=== PATIENT | female | born 1955 | race Caucasian/White ===

== ENCOUNTER 2020-06-22 21:14 | Outpatient (REF) | payer OTHER, SELFPAY ==
[2020-06-22 21:50] LABS: Hemoglobin A1C 5.2 % (<5.7)
[2020-06-22 21:55] LABS: ALT 30 U/L (14-59); AST 23 U/L (15-37); Albumin 3.9 g/dL (3.4-5.0); Alkaline Phosphatase 56 U/L (46-116); Anion Gap 11.5 mmol/L (3-11); BUN 11 mg/dL (7-18); Bilirubin, Total 0.8 mg/dL (0.2-1.0); CO2 27.5 mmol/L (21.0-32.0); CREATININE 0.6 mg/dL (0.55-1.02); Calcium 9.5 mg/dL (8.5-10.1); Calculated LDL 146 mg/dL (<100); Chloride 103 mmol/L (98-107); Cholesterol 246 mg/dL (<200); Glucose 84 mg/dL (74-106); HDL Cholesterol 91 mg/dL (40-60); Potassium 3.9 mmol/L (3.5-5.1); Sodium 142 mmol/L (136-145); TSH (W/Ref FT4) 3.24 uIU/mL (0.36-3.74); Total Protein 7.5 g/dL (6.4-8.2); Triglyceride 49 mg/dL (<150)
[2020-06-26 09:42] LABS: Hepatitis C Ab w Rflx HCV PCR Negative (Negative)
== END 2020-06-22 21:15 | disposition home or self-care (01) ==
LOC: NCHCN 21:14
PROVIDERS: Visit Provider Nurse Practitioner Family
DX: E78.89 Other lipoprotein metabolism disorders (principal); E03.9 Hypothyroidism, unspecified; M81.0 Age-related osteoporosis without current pathological fracture; Z13.1 Encounter for screening for diabetes mellitus
CPT/HCPCS: 80053; 80061; 82306; 86803; 83036; 84443

== ENCOUNTER 2020-07-04 15:59 | Outpatient (REF) | payer OTHER, SELFPAY ==
--- NOTE | 2020-07-04 15:19 | PAPFT_PTH ---
PATIENT: Brook Burch LOC: [facility]#:[id number] AGE/SX: 64/F ROOM: RE07/04/[address]: Lesley Redman : 1955 BED: DIS: 07/04/2020 SPEC #: [id number] RECD: 07/05/20 12:59 STATUS: MARK GARCIA #: [id number] BENTON: 07/04/20 15:[address]: Lesley Redman DEPT: [facility] Cytology RECD BY: Radha Smalls Tissues: 1 - CX/ENDOCX FOR PAP SMEARS Procedures: PAP THIN PREP/[facility] Screening HPV DNA PROBE Comments: [id number]
== END 2020-07-04 16:00 | disposition home or self-care (01) ==
LOC: NCHCN 15:59
PROVIDERS: Visit Provider Nurse Practitioner Family
DX: Z12.4 Encounter for screening for malignant neoplasm of cervix (principal); Z11.51 Encounter for screening for human papillomavirus (HPV)
CPT/HCPCS: 88142; 87624

== ENCOUNTER 2021-07-26 20:04 | Outpatient (REF) | payer MEDICARE, SELFPAY ==
[2021-07-26 17:04] LABS: ALT 33 U/L (14-59); AST 27 U/L (15-37); Albumin 3.8 g/dL (3.4-5.0); Alkaline Phosphatase 51 U/L (46-116); Anion Gap 6.5 mmol/L (3-11); BUN 13 mg/dL (7-18); Bilirubin, Total 0.7 mg/dL (0.2-1.0); CO2 29.5 mmol/L (21.0-32.0); CREATININE 0.7 mg/dL (0.55-1.02); Calcium 8.8 mg/dL (8.5-10.1); Calculated LDL 132 mg/dL (<100); Chloride 105 mmol/L (98-107); Cholesterol 215 mg/dL (<200); Glucose 93 mg/dL (74-106); HDL Cholesterol 74 mg/dL (40-60); Sodium 141 mmol/L (136-145); TSH 2.45 uIU/mL (0.36-3.74); Triglyceride 46 mg/dL (<150)
== END 2021-07-26 20:05 | disposition home or self-care (01) ==
LOC: NCHCN 20:04
PROVIDERS: Visit Provider Nurse Practitioner Family
DX: E03.9 Hypothyroidism, unspecified (principal); Z13.220 Encounter for screening for lipoid disorders
CPT/HCPCS: 80053; 80061; 84443

== ENCOUNTER 2022-10-23 10:51 | Outpatient (REF) | payer MEDICARE, SELFPAY ==
[2022-10-23 15:12] LABS: Calculated LDL 138 mg/dL (<100); Cholesterol 225 mg/dL (<200); HDL Cholesterol 79 mg/dL (40-60); TSH 2.98 uIU/mL (0.36-3.74); Triglyceride 41 mg/dL (<150)
== END 2022-10-23 10:52 | disposition home or self-care (01) ==
LOC: NCHCN 10:51
PROVIDERS: Visit Provider Internal Medicine
DX: E78.5 Hyperlipidemia, unspecified (principal); E03.9 Hypothyroidism, unspecified
CPT/HCPCS: 80061; 84443

== ENCOUNTER 2023-12-25 08:33 | Outpatient (REF) | payer MEDICARE, SELFPAY ==
[2023-12-25 15:52] LABS: ALT 31 U/L (14-59); AST 24 U/L (15-37); Albumin 3.7 g/dL (3.4-5.0); Alkaline Phosphatase 59 U/L (46-116); Anion Gap 6.4 mmol/L (3-11); BUN 14 mg/dL (7-18); Bilirubin, Total 0.83 mg/dL (0.2-1.0); CO2 30.6 mmol/L (21.0-32.0); CREATININE 0.6 mg/dL (0.55-1.02); Calcium 9.7 mg/dL (8.5-10.1); Calculated LDL 146 mg/dL (<100); Chloride 105 mmol/L (98-107); Cholesterol 237 mg/dL (<200); Estimated GFR 97.71 (mL/min/1.73m2); Glucose 98 mg/dL (74-106); HDL Cholesterol 83 mg/dL (40-60); Potassium 4.3 mmol/L (3.5-5.1); Sodium 142 mmol/L (136-145); TSH (W/Ref FT4) 4.01 uIU/mL (0.36-3.74); Total Protein 7.6 g/dL (6.4-8.2); Triglyceride 41 mg/dL (<150)
[2023-12-25 16:16] LABS: FREE T4 1.16 ng/dL (0.76-1.46)
== END 2023-12-25 08:34 | disposition home or self-care (01) ==
LOC: NCHCN 08:33
PROVIDERS: Visit Provider Internal Medicine
DX: E78.5 Hyperlipidemia, unspecified (principal); E03.9 Hypothyroidism, unspecified
CPT/HCPCS: 80053; 80061; 84439; 84443

== ENCOUNTER 2024-03-03 19:37 | Outpatient (REF) | payer MEDICARE, SELFPAY ==
[2024-03-03 21:15] LABS: TSH 2.46 uIU/mL (0.36-3.74)
== END 2024-03-03 19:38 | disposition home or self-care (01) ==
LOC: NCHCN 19:37
PROVIDERS: Visit Provider Internal Medicine
DX: E03.9 Hypothyroidism, unspecified (principal)
CPT/HCPCS: 84443

== ENCOUNTER 2024-12-31 15:36 | Outpatient (REF) | payer MEDICARE, SELFPAY ==
[2024-12-31 14:57] LABS: TSH 1.94 uIU/mL (0.36-3.74)
== END 2024-12-31 15:37 | disposition home or self-care (01) ==
LOC: NCHCN 15:36
PROVIDERS: PCP Internal Medicine; Visit Provider Internal Medicine
DX: E03.9 Hypothyroidism, unspecified (principal)
CPT/HCPCS: 84443